=== PATIENT | female | born 1970 | race Asian ===

== ENCOUNTER → 2020-06-08 | Outpatient (CLI) | payer OTHER | LOC: MAMMO 09:06 | PROVIDERS: ATTEND Obstetrics & Gynecology | DX: Z12.31 Encounter for screening mammogram for malignant neoplasm of breast (principal) | CPT/HCPCS: 77067 ==

== ENCOUNTER → 2020-06-27 | Outpatient (CLI) | payer OTHER ==
--- NOTE | 2020-06-28 16:34 | Diagnostic Imaging Report ---
#[id number] - USBRELIMLT ULTRASOUND OF THE LEFT BREAST : 06/27/2020 Comparison is made to exams dated: 06/27/2020 mammogram and 06/08/2020 mammogram - [facility]. Color flow and real-time ultrasound were performed on the left breast. Delong scale images of the real-time examination were reviewed. There is a benign 3 mm oval simple cyst in the left breast at 8 o'clock middle depth. IMPRESSION: BENIGN There is no sonographic evidence of malignancy. The 3 mm oval simple cyst in the left breast is benign. A 1 year screening mammogram is recommended. ABY MILLS M.D., mp/penrad:06/28/2020 14:50:25 Tempering Machine Operator: BRIAN WALDEN RDMT, [facility] letter sent: Compared to Prior B9 Ultrasound BI-RADS: 2 Benign
--- NOTE | 2020-06-28 16:34 | Diagnostic Imaging Report ---
#[id number] - MGDXLT #UNILATERAL LEFT DIGITAL DIAGNOSTIC MAMMOGRAM WITH SPOT COMPRESSION: 06/27/2020 Comparison is made to exam dated: 06/08/2020 mammogram - [facility]. The tissue of the left breast is heterogeneously dense. This may lower the sensitivity of mammography. There is a 7 mm oval equal density mass with a circumscribed margin in the left breast at 8 o'clock middle depth. No other significant masses or calcifications are seen in the breast. IMPRESSION: INCOMPLETE: NEEDS ADDITIONAL IMAGING EVALUATION The 7 mm oval equal density mass in the left breast is indeterminate. An ultrasound is recommended and will be performed during the same visit as part of complete diagnostic workup. Follow-up with ACR/ACS guidelines. ABY MILLS M.D. mp/:06/28/2020 14:49:06 Splicer Apprentice: Soheila BRUNER)(Kin), [facility] Mammogram BI-RADS: 0 Indeterminate
== END ==
LOC: MAMMO 10:01
PROVIDERS: ATTEND Obstetrics & Gynecology
DX: N63.20 Unspecified lump in the left breast, unspecified quadrant (principal)